=== PATIENT | male | born 1970 | race Caucasian/White ===

== ENCOUNTER 2023-01-29 21:51 | Emergency (ER) | payer OTHER, SELFPAY ==
--- NOTE | ~2023-01-29 | XR_ITS ---
EXAM: XR wrist RT min 3V DATE: 01/29/2023 22:05 HISTORY: FOOSH. POSTERIOR/LATERAL RIGHT WRIST PAIN. . COMPARISON: None available. FINDINGS: Normal mineralization. Nondisplaced oblique fracture through the radial styloid extending to the radiocarpal articulation. No lytic or blastic lesion. Joint spaces are maintained. No erosion or periosteal change. Soft tissue swelling about the wrist. IMPRESSION: Nondisplaced intra-articular radial styloid fracture. Reviewed, dictated and finalized at location K.
[2023-01-29 21:55] VITALS: BP 121/84; PULSE 100; RESP 16; TEMP 36.4; O2SAT 96
--- NOTE | 2023-01-29 21:55 | ED.GENADULT ---
HPI - General Adult General Chief complaint: Extremity Injury, Upper Stated complaint: right upper extremity injury Time Seen by Provider: 01/29/23 21:54 Source: patient Mode of arrival: ambulatory Limitations: no limitations History of Present Illness HPI narrative: PATIENT 52-YEAR-OLD OBESE [employer] FELL BACK ON OUT SHE STRETCHED HAND HIS RIGHT DOMINANT HAND COMPLAINS OF SWELLING AND PAIN HIS RADIAL ASPECT OF HIS WRIST. Complains of pain and swelling decreased range of motion. Denies any other injury. Past injury to that hand he lacerated some extensor tendons that were repaired now just feels a little funny when he uses it but he has no loss of function related to his old injury. But now has decreased range of motion in all directions. patient rates his pain as a 7/10. Otherwise he is eating drinking voiding and stooling fine eating drinking seeing and hearing fine. Denies any dizziness or lightheadedness rash or itching other bruising or swelling elsewhere and denies cough shortness of breath fever sore throat runny nose. denies any other complaints. Related Data Home Medications Medication Instructions Recorded Confirmed No Home Medications 01/29/23 01/29/23 Allergies Allergy/AdvReac Type Severity Reaction Status Date / Time No Known Allergies Allergy Verified 01/29/23 21:58 Review of Systems Review of Systems: All systems reviewed & are unremarkable except as noted in HPI and below Exam Narrative: White obese male patient with no apparent distress pleasant.? Head normocephalic, atraumatic.? Eyes conjunctiva pink sclera nonicteric.? Extraocular movements are intact.? Ears externally normal.?Extremities no cyanosis clubbing or edema.? right wrist decreased range of motion all directions. He has tender swelling on the dorsal aspect of his right wrist on the radial side. He has snuffbox tenderness on the right wrist. He has a well-healed surgical scar over his 2nd 3rd 4th and 5th metacarpal area distally. Capillary refill is normal. Radial pulse is +2. Skin is warm and dry without rashes or lesions.? Neurological patient is alert and oriented x4.? Motor and sensory grossly intact.? Gait is normal. Medical Decision Making Differential Diagnosis Differential Diagnosis: Patient was placed in room 2 history and physical were performed. thumb spica splint applied. Independent Historian: ? Patient Differential Dx includes but not limited to: Medications were Reviewed:? ? Medications treatments given: Refused Toradol. Thumb spica splint was applied . Splint was reapplied proper there is good capillary refill. Independently Interpreted by me:? External Source Review:?? Medical conditions/social Situation Impacting Patients Care:?? Shared decision Making: refused Toradol 60 mg IM.? ? Clinical impression:? Nondisplaced closed right radial styloid fracture ? Patient disposition: ? discharge home ? Condition at discharge: stable Discharge Plan Discharge Clinical Impression: Nondisplaced fracture of right radial styloid process, initial encounter for closed fracture Patient Disposition: Home, Self-Care Condition: Stable Instructions: Antibiotic Form Additional Instructions: Tylenol and or ibuprofen as needed for pain. Leave her wrist in the splint until you see orthopedist. Take copies of your x-rays with you to show to the orthopedist. Follow-up with an orthopedist in the next 1-2 weeks. Keep your arm raise above your heart as much as possible to prevent swelling. Prescriptions: No Action No Home Medications Follow-up/Referrals: UNKNOWN,DOCTOR [Primary Care Provider] - Time of Disposition: 22:31
[2023-01-29 22:40] VITALS: BP 125/74; PULSE 78; RESP 18; O2SAT 98
== END 2023-01-29 22:43 | disposition home or self-care (01) ==
PROVIDERS: Emergency Provider Emergency Medicine
DX: S52.514A Nondisplaced fracture of right radial styloid process, initial encounter for closed fracture (principal); W19.XXXA Unspecified fall, initial encounter
CPT/HCPCS: 29125; 73110; 99284; L3908